=== PATIENT | male | born 1965 | race Caucasian/White ===

== ENCOUNTER 2017-11-27 10:17 | Observation (INO) | payer BC, OTHER ==
[~2017-11-27] VITALS: Ht 190.5 cm; Wt 112.0 kg
[~2017-11-27 10:17] MED LIST: ALPR.25 PO; LEVO50IN PO; LISI-360 PO; NEXI40CA PO; PRED10PA PO; WALKER ROLLING
[2017-11-27 10:21] VITALS: BP 155/87; PULSE 78; RESP 17; TEMP 98.5; O2SAT 98
[2017-11-27] MEDS ORDERED: SODIUM CHLOR 0.9% 1000 ML INJ 1,000 ML IV SCH (10:33)
[2017-11-27] MEDS ORDERED: LEVO200T4 PO (10:44)
[2017-11-27] MEDS ORDERED: NEXI40CA PO (10:44)
[2017-11-27] MEDS ORDERED: ALPR1TAB3 PO (10:44)
[2017-11-27] MEDS ORDERED: LISI10TA3 PO (10:44)
[2017-11-27] MEDS ORDERED: MORPHINE SULFATE 4 MG/ML INJ IV PUSH ONE (10:45)
[2017-11-27] MEDS ORDERED: ONDANSETRON HCL 4 MG/2 ML VIAL IVP ONE (10:45)
[2017-11-27] MEDS ORDERED: SODIUM CHLORIDE 0.9% FLUSH 10 ML FLUSH IV FLUSH PRN ×2 (10:45→13:15)
[2017-11-27 11:15] LABS: AUTOMATED NEUTROPHIL # 14.7 TH/MM3 (1.8-7.7); BASOPHIL # 0.1 TH/MM3 (0-0.2); BASOPHIL % 0.6 % (0.0-2.0); EOSINOPHIL # 0.3 TH/MM3 (0-0.4); EOSINOPHIL % 1.5 % (0.0-4.0); HEMATOCRIT 47.1 % (39.0-51.0); HEMOGLOBIN 16.3 GM/DL (13.0-17.0); LYMPH % 9.9 % (9.0-44.0); LYMPHOCYTE # 1.8 TH/MM3 (1.0-4.8); MEAN CORPUSCULAR HEMOGLOBIN 30.7 PG (27.0-34.0); MEAN CORPUSCULAR HGB CONC 34.5 % (32.0-36.0); MEAN PLATELET VOLUME 7.6 FL (7.0-11.0); MONOCYTE # 1.1 TH/MM3 (0-0.9); PLATELET COUNT 323 TH/MM3 (150-450); RED CELL DISTRIBUTION WIDTH 13.6 % (11.6-17.2); WHITE BLOOD COUNT 17.9 TH/MM3 (4.0-11.0)
[2017-11-27 11:31] LABS: ALBUMIN 3.9 GM/DL (3.4-5.0); ALT (GPT) 45 U/L (12-78); AST (GOT) 20 U/L (15-37); BICARBONATE 25.6 MEQ/L (21.0-32.0); BLOOD UREA NITROGEN 10 MG/DL (7-18); CHLORIDE 110 MEQ/L (98-107); CREATININE 0.89 MG/DL (0.60-1.30); GLOMERULAR FILTRATION RATE 90 ML/MIN (>89); GLUCOSE,RANDOM 106 MG/DL (74-106); SODIUM (NA) 143 MEQ/L (136-145)
[2017-11-27 11:34] LABS: ALKALINE PHOSPHATASE 76 U/L (45-117); TOTAL BILIRUBIN ADULT 0.5 MG/DL (0.2-1.0); TOTAL PROTEIN 7.8 GM/DL (6.4-8.2)
--- NOTE | 2017-11-27 12:12 | PD ---
HPI . Abdominal pain Chief Complaint: Abdominal Pain Time Seen by Provider: 10:24 Travel History International Travel<30 days: No Contact w/Intl Traveler<30days: No Traveled to known affect area: No History of Present Illness HPI This patient presents with a 2 day history of abdominal pain. The pain is described as crampy and is rated at 8/10. The pain has waxed and waned and is getting progressively worse. He does not have any associated symptoms such as GI upset, fever or urinary tract symptoms. He reports a bowel movement yesterday. He denies any flank pain. This patient has a history of previous diverticulitis treated with partial colectomy. He states that his current abdominal pain does not feel like previous diverticulitis. PFSH Past Medical History Hx Anticoagulant Therapy: Yes (asa) Autoimmune Disease: No Cancer: No Cardiovascular Problems: Yes High Cholesterol: Yes Chemotherapy: No Diabetes: No Diminished Hearing: No Diverticulitis: Yes Endocrine: No Gastrointestinal Disorders: Yes (BOWEL PERFORATION) GERD: Yes Hepatitis: No Hiatal Hernia: No Hypertension: Yes Immune Disorder: No Medical other: Yes (TRANSVERSE MYLITIS) Neurologic: Yes (MULTIPLE SCLEROSIS) Psychiatric: No Migraines: Yes Radiation Therapy: No Thyroid Disease: Yes Tetanus Vaccination: Unknown Influenza Vaccination: No Past Surgical History Abdominal Surgery: Yes (COLON RESECTION FOR DIVERTICULITIS,HERNIA WITH MESH) AICD: No Eye Surgery: Yes (STYE OD REMOVED) Insulin Pump: No Joint Replacement: No Pacemaker: No Other Surgery: Yes (partial thyroidectomy) Social History Alcohol Use: Yes (on occasion) Tobacco Use: No Substance Use: No Allergies-Medications (Allergen,Severity, Reaction): Coded Allergies: codeine (Unverified Allergy, Severe, Nausea/Vomiting, 11/27/17) PER PATIENT penicillin G (Unverified Allergy, Severe, CHILD, 11/27/17) Reported Meds & Prescriptions Reported Meds & Active Scripts Active Reported Alprazolam 1 Mg Tab 1 Mg PO Q6H PRN Levothyroxine (Levothyroxine Sodium) 200 Mcg Tab 200 Mcg PO DAILY Lisinopril 10 Mg Tab 10 Mg PO DAILY Nexium (Esomeprazole DR) 40 Mg Capdr 40 Mg PO DAILY Review of Systems Except as stated in HPI: all other systems reviewed are Neg General / Constitutional: No: Fever, Chills Gastrointestinal: Positive: Abdominal Pain, No: Nausea, Vomiting, Diarrhea, Constipation Genitourinary: No: Urgency, Frequency, Dysuria, Hematuria, Flank Pain Physical Exam Narrative GENERAL: This patient looks very uncomfortable. He had to stand up in order to get comfortable. He is very restless. SKIN: warm. Clammy. HEAD: Normocephalic. Atraumatic. EYES: Pupils equal and round. No scleral icterus. No injection or drainage. ENT: No nasal bleeding or discharge. Mucous membranes pink and moist. NECK: Trachea midline. Full range of motion without pain.. CARDIOVASCULAR: Regular rate and rhythm. RESPIRATORY: No accessory muscle use. Clear to auscultation. Breath sounds equal bilaterally. GASTROINTESTINAL: Abdomen soft. Periumbilical tenderness. Bowel sounds present. Nondistended. : No CVA tenderness. MUSCULOSKELETAL: No obvious deformities. NEUROLOGICAL: Awake and alert. No obvious cranial nerve deficits. Motor grossly within normal limits. Normal speech. PSYCHIATRIC: Appropriate mood and affect; insight and judgment normal. Data Data Last Documented VS Vital Signs Date Time Temp Pulse Resp B/P (MAP) Pulse Ox O2 Delivery O2 Flow Rate FiO2 11/27/17 10:21 98.5 78 17 155/87 (109) 98 Orders Orders Complete Blood Count With Diff (11/27/17 10:33) Comprehensive Metabolic Panel (11/27/17 10:33) Lipase (11/27/17 10:33) Lactic Acid (11/27/17 10:33) Urinalysis - C+S If Indicated (11/27/17 10:33) Ct Abd/Pel W Iv Contrast(Rout) (11/27/17 10:33) Iv Access Insert/Monitor (11/27/17 10:33) NPO (11/27/17 10:33) Morphine Inj (Morphine Inj) (11/27/17 10:45) Ondansetron Inj (Zofran Inj) (11/27/17 10:45) Sodium Chlor 0.9% 1000 Ml Inj (Ns 1000 M (11/27/17 10:33) Sodium Chloride 0.9% Flush (Ns Flush) (11/27/17 10:45) Iohexol 350 Inj (Omnipaque 350 Inj) (11/27/17 12:26) Admit Order (Ed Use Only) (4/1/18 13:17) Labs Laboratory Tests Test 11/27/17 10:55 11/27/17 12:40 White Blood Count 17.9 TH/MM3 Red Blood Count 5.30 MIL/MM3 Hemoglobin 16.3 GM/DL Hematocrit 47.1 % Mean Corpuscular Volume 89.0 FL Mean Corpuscular Hemoglobin 30.7 PG Mean Corpuscular Hemoglobin Concent 34.5 % Red Cell Distribution Width 13.6 % Platelet Count 323 TH/MM3 Mean Platelet Volume 7.6 FL Neutrophils (%) (Auto) 82.0 % Lymphocytes (%) (Auto) 9.9 % Monocytes (%) (Auto) 6.0 % Eosinophils (%) (Auto) 1.5 % Basophils (%) (Auto) 0.6 % Neutrophils # (Auto) 14.7 TH/MM3 Lymphocytes # (Auto) 1.8 TH/MM3 Monocytes # (Auto) 1.1 TH/MM3 Eosinophils # (Auto) 0.3 TH/MM3 Basophils # (Auto) 0.1 TH/MM3 CBC Comment DIFF FINAL Differential Comment Blood Urea Nitrogen 10 MG/DL Creatinine 0.89 MG/DL Random Glucose 106 MG/DL Total Protein 7.8 GM/DL Albumin 3.9 GM/DL Calcium Level 9.0 MG/DL Alkaline Phosphatase 76 U/L Aspartate Amino Transf (AST/SGOT) 20 U/L Alanine Aminotransferase (ALT/SGPT) 45 U/L Total Bilirubin 0.5 MG/DL Sodium Level 143 MEQ/L Potassium Level 4.3 MEQ/L Chloride Level 110 MEQ/L Carbon Dioxide Level 25.6 MEQ/L Anion Gap 7 MEQ/L Estimat Glomerular Filtration Rate 90 ML/MIN Lactic Acid Level 1.2 mmol/L Lipase 93 U/L [facility] Medical Decision Making Medical Screen Exam Complete: Yes Emergency Medical Condition: Yes Medical Record Reviewed: Yes (Medical history includes hypertension, multiple sclerosis and hypothyroidism.) Differential Diagnosis Differential diagnosis of abdominal pain includes but is not limited to gastritis, pancreatitis, hepatitis, gastroenteritis, constipation, urinary retention, peptic ulcer disease, diverticulitis or appendicitis Narrative Course This patient presents with crampy abdominal pain which waxes and wanes and which is getting progressively worse over the course of the last 2 days. He looks very uncomfortable. I have ordered IV fluids and IV pain medication. Routine abdominal pain workup is in process including a CT of the abdomen to look for diverticulitis, bowel obstruction, perforation, kidney stone, AAA. CBC & BMP Diagram 11/27/17 10:55 Total Protein 7.8, Albumin 3.9, Calcium Level 9.0, Alkaline Phosphatase 76, Aspartate Amino Transf (AST/SGOT) 20, Alanine Aminotransferase (ALT/SGPT) 45, Total Bilirubin 0.5 Lipase 93, lactic acid 1.2 He does not meet SIRS criteria but does have leukocytosis. Diagnosis Primary Impression: Abdominal pain Qualified Codes: R10.33 - Periumbilical pain Additional Impressions: Leukocytosis Qualified Codes: D72.829 - Elevated white blood cell count, unspecified ileius vs. early SBO Admitting Information Admitting Physician Requests: Admit Patient Instructions: Narcotic given in the ED Condition: Stable Jayne Sarah MD Nov 27, 2017 12:12
[2017-11-27] MEDS ORDERED: IOHEXOL 350 MG/ML 10 ML VIAL (for RAD DIAG) IVCONTRAST ONE (12:26)
--- NOTE | 2017-11-27 12:31 | RADRPT ---
EXAM DATE/TIME: 11/27/2017 12:16 [place] COMPARISON: No previous studies available for comparison. INDICATIONS : Mid abdominal pain for 2 days. IV CONTRAST: 100 cc Omnipaque 350 (iohexol) IV ORAL CONTRAST: No oral contrast ingested. RADIATION DOSE: 16.20 CTDIvol (mGy) MEDICAL HISTORY : Hypertension. Diverticulitis. SURGICAL HISTORY : Colon resection. Hernia mesh. ENCOUNTER: Initial ACUITY: 2 days PAIN SCALE: 8/10 LOCATION: Bilateral middle abdomen TECHNIQUE: Volumetric scanning of the abdomen and pelvis was performed. Using automated exposure control and ad justment of the mA and/or kV according to patient size, radiation dose was kept as low as reasonably achievable to obtain optimal diagnostic quality images. DICOM format image data is available electro nically for review and comparison. FINDINGS: LOWER LUNGS: The visualized lower lungs are clear. LIVER: Homogeneous density without lesion. There is no dilation of the biliary tree. There is moderate hep atic steatosis. There are multiple small calcified gallstones layering dependently in the gallbladder . There is no wall thickening or inflammatory change. SPLEEN: Normal size without lesion. PANCREAS: Within normal limits. KIDNEYS: Normal in size and shape. There is no mass, stone or hydronephrosis. ADRENAL GLANDS: Within normal limits. VASCULAR: There is no aortic aneurysm. BOWEL/MESENTERY: Postsurgical changes are present status post partial colectomy with anastomotic mateusz in the pelvis . There are scattered diverticuli with no inflammatory change. There is a normal appendix. There are multiple loops of nondilated air-containing small bowel with several small air-fluid levels. There is no free air or fluid. ABDOMINAL WALL: Within normal limits. RETROPERITONEUM: There is no lymphadenopathy. BLADDER: No wall thickening or mass. REPRODUCTIVE: Within normal limits. INGUINAL: There is no lymphadenopathy or hernia. MUSCULOSKELETAL: Within normal limits for patient age. CONCLUSION: 1. Mildly nonspecific, nonobstructive bowel gas pattern which may represent a mild ileus and/or gastr oenteritis. There are postsurgical changes status post partial colectomy. 2. Cholelithiasis with multiple small calcified gallstones layering dependently. There is no wall thi ckening or inflammatory change 3. Moderate hepatic steatosis. Shashank Richards MD on November 27, 2017 at 12:25 Board Certified Radiologist. This report was verified electronically.
[2017-11-27 13:09] LABS: BILIRUBIN, URINE NEG (NEG); BLOOD, URINE NEG (NEG); GLUCOSE,URINE NEG (NEG); KETONE, URINE NEG (NEG); NITRITE,URINE NEG (NEG); URINE COLOR YELLOW (YELLW/STRAW); URINE LEUKOCYTE ESTERASE NEG (NEG)
[2017-11-27] MEDS ORDERED: ACETAMINOPHEN 325 MG TAB PO PRN (13:15)
[2017-11-27] MEDS: 1/2 NS + KCL 20 MEQ INJ 1,000 ML IV SCH (13:15)
[2017-11-27] MEDS ORDERED: ACETAMINOPHEN/HYDROcodone 325 MG/5 MG TAB PO PRN (13:15)
[2017-11-27] MEDS ORDERED: LACTULOSE SYRUP 20 GM/30 ML CUP PO PRN (13:15)
--- NOTE | 2017-11-27 13:29 | HHI.HP ---
HPI Service [facility] Hospitalists Primary Care Physician Arcenio Szymanski MD Admission Diagnosis ileus vs partial SBO Chief Complaint: abd pain Travel History International Travel<30 Days: No Contact w/Intl Traveler <30 Da: No Traveled to Known Affected Are: No History of Present Illness This is a 52 year old male patient with a past medical history which includes Diverticulitis s/p partial colectomy, thyroidectomy, MS dx [address] Gallagher, Migraine headache takes Goody's powder about twice a month. Patient presents to the ER due to crampy/aching type abd pain. Patient reports two nights ago he had abd pain located in the midepigastric area which woke him from sleep. Yesterday the abd pain seemed to resolve then came back again last night. Last night the abd pain was worse and awoke him more often therefor he proceeded to the ER. Patient denies associated N/V/D/C or blood in stool. Last BM yesterday. Patient also denies fevers, chills, chest pain, shortness of breath or flank pain. Last colonoscopy was done with Dr. North about one year ago, partial colectomy by Dr. Johns CT abd/pelvis reveals: Mildly nonspecific, nonobstructive bowel gas pattern which may represent a mild ileus and/or gastroenteritis. There are postsurgical changes status post partial colectomy. Cholelithiasis with multiple small calcified gallstones layering dependently. There is no wall thickening or inflammatory change. Moderate hepatic steatosis. WBC 17.9 Review of Systems Constitutional: DENIES: Fatigue, Fever, Chills Eyes: DENIES: Blurred vision, Diplopia, Photosensitivity Respiratory: DENIES: Cough, Sputum production, Shortness of breath Cardiovascular: DENIES: Chest pain, Dyspnea on Exertion, Lower Extremity Edema Gastrointestinal: COMPLAINS OF: Abdominal pain, DENIES: Black stools, Bloody stools, BRB per rectum, Constipation, Diarrhea, Nausea, Vomiting Neurologic: DENIES: Abnormal gait, Headache, Localized weakness, Seizures Psychiatric: DENIES: Anxiety, Confusion, Depression Past Family Social History Past Medical History Diverticulitis, post colectomy. History of transverse myelitis in the past. Past Surgical History Previous back surgeries Thyroidectomy Partial collectomy secondary to diverticulitis Reported Medications Alprazolam 1 Mg Tab 1 Mg PO Q6H PRN Levothyroxine (Levothyroxine Sodium) 200 Mcg Tab 200 Mcg PO DAILY Lisinopril 10 Mg Tab 10 Mg PO DAILY Nexium (Esomeprazole DR) 40 Mg Capdr 40 Mg PO DAILY Allergies: Coded Allergies: codeine (Unverified Allergy, Severe, Nausea/Vomiting, 11/27/17) PER PATIENT penicillin G (Unverified Allergy, Severe, CHILD, 11/27/17) Family History Cousin has MS Father of colon Ca at 62 years old Social History He is . 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 Denies ETOH use, tobacco use or illicit drug use Physical Exam Vital Signs Vital Signs Date Time Temp Pulse Resp B/P (MAP) Pulse Ox O2 Delivery O2 Flow Rate FiO2 11/27/17 10:21 98.5 78 17 155/87 (109) 98 Physical Exam GENERAL: This is a well-nourished, well-developed patient, in no apparent distress. SKIN: No rashes, ecchymoses or lesions. Cool and dry. HEAD: Atraumatic. Normocephalic. No temporal or scalp tenderness. EYES: Extraocular motions intact. No scleral icterus. No injection or drainage. CARDIOVASCULAR: Regular rate and rhythm RESPIRATORY: Clear to auscultation. Breath sounds equal bilaterally. GASTROINTESTINAL: Abdomen soft, non-tender, nondistended. positive normoactive bowel sounds x 4 quadrants MUSCULOSKELETAL: Extremities without clubbing, cyanosis, or edema. No joint tenderness, effusion, or edema noted. No calf tenderness. Negative Homans sign bilaterally. NEUROLOGICAL: Awake and alert. No focal deficits. Motor and sensory grossly within normal limits. Five out of 5 muscle strength in all muscle groups. Normal speech. Laboratory Laboratory Tests Test 11/27/17 10:55 11/27/17 12:40 White Blood Count 17.9 Red Blood Count 5.30 Hemoglobin 16.3 Hematocrit 47.1 Mean Corpuscular Volume 89.0 Mean Corpuscular Hemoglobin 30.7 Mean Corpuscular Hemoglobin Concent 34.5 Red Cell Distribution Width 13.6 Platelet Count 323 Mean Platelet Volume 7.6 Neutrophils (%) (Auto) 82.0 Lymphocytes (%) (Auto) 9.9 Monocytes (%) (Auto) 6.0 Eosinophils (%) (Auto) 1.5 Basophils (%) (Auto) 0.6 Neutrophils # (Auto) 14.7 Lymphocytes # (Auto) 1.8 Monocytes # (Auto) 1.1 Eosinophils # (Auto) 0.3 Basophils # (Auto) 0.1 CBC Comment DIFF FINAL Differential Comment Blood Urea Nitrogen 10 Creatinine 0.89 Random Glucose 106 Total Protein 7.8 Albumin 3.9 Calcium Level 9.0 Alkaline Phosphatase 76 Aspartate Amino Transf (AST/SGOT) 20 Alanine Aminotransferase (ALT/SGPT) 45 Total Bilirubin 0.5 Sodium Level 143 Potassium Level 4.3 Chloride Level 110 Carbon Dioxide Level 25.6 Anion Gap 7 Estimat Glomerular Filtration Rate 90 Lactic Acid Level 1.2 Lipase 93 Result Diagram: 11/27/17 1055 11/27/17 1055 Imaging Last Impressions Abdomen/Pelvis CT 11/27/17 1033 Signed Impressions: Service Date/Time: Monday, November 27, 2017 12:16 - CONCLUSION: 1. Mildly nonspecific, nonobstructive bowel gas pattern which may represent a mild ileus and/or gastroenteritis. There are postsurgical changes status post partial colectomy. 2. Cholelithiasis with multiple small calcified gallstones layering dependently. There is no wall thickening or inflammatory change 3. Moderate hepatic steatosis. Shashank Richards MD Caprini VTE Risk Assessment Caprini VTE Risk Assessment: No/Low Risk (score <= 1) Caprini Risk Assessment Model Point Value = 1 Point Value = 2 Point Value = 3 Point Value = 5 Age 41-60 Minor surgery BMI > 25 kg/m2 Swollen legs Varicose veins or History of unexplained or recurrent spontaneous Oral contraceptives or hormone replacement Sepsis (< 1 month) Serious lung disease, including pneumonia (< 1 month) Abnormal pulmonary function Acute myocardial infarction Congestive heart failure (< 1 month) History of inflammatory bowel disease Medical patient at bed rest Age 61-74 Arthroscopic surgery Major open surgery (> 45 min) Laparoscopic surgery (> 45 min) Malignancy Confined to bed (> 72 hours) Immobilizing plaster cast Central venous access Age >= 75 History of VTE Family history of VTE Factor V Leiden Prothrombin [id number] Lupus anticoagulant Anticardiolipin antibodies Elevated serum homocysteine Heparin-induced thrombocytopenia Other congenital or acquired thrombophilia Stroke (< 1 month) Elective arthroplasty Hip, pelvis, or leg fracture Acute spinal cord injury (< 1 month) Prophylaxis Regimen Total Risk Factor Score Risk Level Prophylaxis Regimen 0-1 Low Early ambulation 2 Moderate Order ONE of the following: *Sequential Compression Device (SCD) *Heparin 5000 units SQ BID 3-4 Higher Order ONE of the following medications: *Heparin 5000 units SQ TID *Enoxaparin/Lovenox 40 mg SQ daily (WT < 150 kg, CrCl > 30 mL/min) *Enoxaparin/Lovenox 30 mg SQ daily (WT < 150 kg, CrCl > 10-29 mL/min) *Enoxaparin/Lovenox 30 mg SQ BID (WT < 150 kg, CrCl > 30 mL/min) AND/OR *Sequential Compression Device (SCD) 5 or more Highest Order ONE of the following medications: *Heparin 5000 units SQ TID (Preferred with Epidurals) *Enoxaparin/Lovenox 40 mg SQ daily (WT < 150 kg, CrCl > 30 mL/min) *Enoxaparin/Lovenox 30 mg SQ daily (WT < 150 kg, CrCl > 10-29 mL/min) *Enoxaparin/Lovenox 30 mg SQ BID (WT < 150 kg, CrCl > 30 mL/min) AND *Sequential Compression Device (SCD) Assessment and Plan Problem List: (1) Ileus ICD Codes: K56.7 - Ileus, unspecified Plan: CT abd/pelvis reveals: Mildly nonspecific, nonobstructive bowel gas pattern which may represent a mild ileus and/or gastroenteritis. There are postsurgical changes status post partial colectomy. Cholelithiasis with multiple small calcified gallstones layering dependently. There is no wall thickening or inflammatory change. Moderate hepatic steatosis. WBC 17.9 ER started Cipro and Flagyl IV will continue NPO, Bowel rest plan to place NGT if patient starts vomiting IVFs for hydration [place] and Dilaudid as needed for pain KUB in AM (2) Hypothyroidism ICD Codes: E03.9 - Hypothyroidism, unspecified Plan: Patient unsure of Synthroid 3 TSH and free T4 (3) Multiple sclerosis ICD Codes: G35 - Multiple sclerosis Plan: Continue patient's home Tecfidera 240 mg PO BID Assessment and Plan Patient examined. Assessment and plan formulated with Mary MURILLO I agree with the above. Physician Certification 2 Midnight Certification Type: Admission for Inpatient Services Order for Inpatient Services The services are ordered in accordance with Medicare regulations or non- Medicare payer requirements, as applicable. In the case of services not specified as inpatient-only, they are appropriately provided as inpatient services in accordance with the 2-midnight benchmark. Estimated LOS (days): 2 days is the estimated time the patient will need to remain in the hospital, assuming treatment plan goals are met and no additional complications. Post-Hospital Plan: Home Mary Addison Nov 27, 2017 13:29 Jose Delvalle DO Dec 01, 2017 11:36
[2017-11-27] MEDS ORDERED: metroNIDAZOLE 500 MG INJ 100 ML IV ONE (13:30)
[2017-11-27] MEDS ORDERED: PANTOPRAZOLE SODIUM 40 MG VIAL IV PUSH ONE (13:30)
[2017-11-27] MEDS ORDERED: ALPRAZolam 1 MG TAB PO PRN (13:30)
[2017-11-27] MEDS ORDERED: CIPROFLOXACIN 400 MG PREMIX 200 ML IV ONE (13:30)
[2017-11-27 13:45] VITALS: BP 134/66; PULSE 78; RESP 17; O2SAT 97
[2017-11-27] MEDS: HYDROmorphone HCL PF 2 MG/ML VIAL IV PUSH PRN ×2 (15:24→20:23)
[2017-11-27 15:36] LABS: FREE T4 1.65 NG/DL (0.76-1.46)
[2017-11-27 16:00] VITALS: BP 148/94; PULSE 68; RESP 16; TEMP 98.4; O2SAT 99
[2017-11-27] MEDS: CIPROFLOXACIN 400 MG PREMIX 200 ML IV SCH (16:00)
[2017-11-27] MEDS ORDERED: DIME240C PO (16:16)
[2017-11-27] MEDS: ONDANSETRON HCL 4 MG/2 ML VIAL IV PUSH PRN ×2 (16:26→23:41)
[2017-11-27 20:00] VITALS: BP 120/65; PULSE 61; RESP 16; TEMP 98.1; O2SAT 97
[2017-11-27] MEDS: SODIUM CHLORIDE 0.9% FLUSH 10 ML FLUSH IV FLUSH SCH (20:23)
[2017-11-27] MEDS ORDERED: TECFIDERA 240 MG PO SCH (21:00)
[2017-11-27] MEDS ORDERED: TEMAZEPAM 15 MG CAP PO PRN (21:00)
[2017-11-27] MEDS: metroNIDAZOLE 500 MG INJ 100 ML IV SCH (23:41)
[2017-11-28] VITALS: BP 126/68; PULSE 58; RESP 17; TEMP 97.9; O2SAT 97
[2017-11-28] MEDS: 1/2 NS + KCL 20 MEQ INJ 1,000 ML IV SCH ×2 (01:10→13:05)
[2017-11-28 04:00] VITALS: BP 121/59; PULSE 55; RESP 16; TEMP 98.2; O2SAT 96
[2017-11-28] MEDS: HYDROmorphone HCL PF 2 MG/ML VIAL IV PUSH PRN (04:00)
[2017-11-28] MEDS: CIPROFLOXACIN 400 MG PREMIX 200 ML IV SCH (04:00)
[2017-11-28] MEDS ORDERED: LEVOTHYROXINE SODIUM 200 MCG TAB PO SCH (06:00)
[2017-11-28] MEDS: ONDANSETRON HCL 4 MG/2 ML VIAL IV PUSH PRN (06:01)
[2017-11-28] MEDS: LEVOTHYROXINE SODIUM 150 MCG TAB PO SCH (07:30)
[2017-11-28 08:00] VITALS: BP 125/61; PULSE 60; RESP 18; TEMP 97.8; O2SAT 96
[2017-11-28 08:01] LABS: AUTOMATED NEUTROPHIL # 9.8 TH/MM3 (1.8-7.7); BASOPHIL % 0.3 % (0.0-2.0); EOSINOPHIL % 0.1 % (0.0-4.0); HEMATOCRIT 42.8 % (39.0-51.0); HEMOGLOBIN 14.6 GM/DL (13.0-17.0); LYMPH % 8.9 % (9.0-44.0); MEAN CELL VOLUME 89.8 FL (80.0-100.0); MEAN CORPUSCULAR HEMOGLOBIN 30.7 PG (27.0-34.0); MEAN CORPUSCULAR HGB CONC 34.2 % (32.0-36.0); MEAN PLATELET VOLUME 8.3 FL (7.0-11.0); MONO % 3.9 % (0.0-8.0); MONOCYTE # 0.4 TH/MM3 (0-0.9); NEUT % 86.8 % (16.0-70.0); PLATELET COUNT 273 TH/MM3 (150-450); RED BLOOD COUNT 4.76 MIL/MM3 (4.50-5.90); RED CELL DISTRIBUTION WIDTH 13.3 % (11.6-17.2); WHITE BLOOD COUNT 11.3 TH/MM3 (4.0-11.0)
[2017-11-28] MEDS ORDERED: MORPHINE SULFATE 4 MG/ML INJ IV PUSH PRN (08:15)
[2017-11-28] MEDS ORDERED: ALPRAZolam 1 MG TAB PO PRN (08:15)
--- NOTE | 2017-11-28 08:18 | HHI.PR ---
Subjective Remarks Patient reports he had a, "bad night," vomited after Dilaudid no longer having abd pain no longer having N/V Objective Vitals Vital Signs Date Time Temp Pulse Resp B/P (MAP) Pulse Ox O2 Delivery O2 Flow Rate FiO2 11/28/17 04:00 98.2 55 16 121/59 (79) 96 11/28/17 00:00 97.9 58 17 126/68 (87) 97 11/27/17 20:00 98.1 61 16 120/65 (83) 97 11/27/17 16:00 98.4 68 16 148/94 (112) 99 11/27/17 14:27 11/27/17 13:45 78 17 134/66 (88) 97 Room Air 11/27/17 10:21 98.5 78 17 155/87 (109) 98 Result Diagram: 11/28/17 0639 11/27/17 1055 Other Results Laboratory Tests Test 11/27/17 10:55 11/27/17 12:40 11/28/17 06:39 White Blood Count 17.9 TH/MM3 11.3 TH/MM3 Red Blood Count 5.30 MIL/MM3 4.76 MIL/MM3 Hemoglobin 16.3 GM/DL 14.6 GM/DL Hematocrit 47.1 % 42.8 % Mean Corpuscular Volume 89.0 FL 89.8 FL Mean Corpuscular Hemoglobin 30.7 PG 30.7 PG Mean Corpuscular Hemoglobin Concent 34.5 % 34.2 % Red Cell Distribution Width 13.6 % 13.3 % Platelet Count 323 TH/MM3 273 TH/MM3 Mean Platelet Volume 7.6 FL 8.3 FL Neutrophils (%) (Auto) 82.0 % 86.8 % Lymphocytes (%) (Auto) 9.9 % 8.9 % Monocytes (%) (Auto) 6.0 % 3.9 % Eosinophils (%) (Auto) 1.5 % 0.1 % Basophils (%) (Auto) 0.6 % 0.3 % Neutrophils # (Auto) 14.7 TH/MM3 9.8 TH/MM3 Lymphocytes # (Auto) 1.8 TH/MM3 1.0 TH/MM3 Monocytes # (Auto) 1.1 TH/MM3 0.4 TH/MM3 Eosinophils # (Auto) 0.3 TH/MM3 0.0 TH/MM3 Basophils # (Auto) 0.1 TH/MM3 0.0 TH/MM3 CBC Comment DIFF FINAL DIFF FINAL Differential Comment Blood Urea Nitrogen 10 MG/DL Creatinine 0.89 MG/DL Random Glucose 106 MG/DL Total Protein 7.8 GM/DL Albumin 3.9 GM/DL Calcium Level 9.0 MG/DL Alkaline Phosphatase 76 U/L Aspartate Amino Transf (AST/SGOT) 20 U/L Alanine Aminotransferase (ALT/SGPT) 45 U/L Total Bilirubin 0.5 MG/DL Sodium Level 143 MEQ/L Potassium Level 4.3 MEQ/L Chloride Level 110 MEQ/L Carbon Dioxide Level 25.6 MEQ/L Anion Gap 7 MEQ/L Estimat Glomerular Filtration Rate 90 ML/MIN Lactic Acid Level 1.2 mmol/L Lipase 93 U/L Free Thyroxine 1.65 NG/DL Thyroid Stimulating Hormone 3rd Gen 0.173 uIU/ML Urine Color YELLOW Urine Turbidity CLEAR Urine pH 5.0 Urine Specific [place] 1.022 Urine Protein NEG mg/dL Urine Glucose (UA) NEG mg/dL Urine Ketones NEG mg/dL Urine Occult Blood NEG Urine Nitrite NEG Urine Bilirubin NEG Urine Urobilinogen LESS THAN 2.0 MG/DL Urine Leukocyte Esterase NEG Urine WBC 1 /hpf Microscopic Urinalysis Comment CULT NOT INDICATED Imaging Last Impressions Abdomen/Pelvis CT 11/27/17 1033 Signed Impressions: Service Date/Time: Monday, November 27, 2017 12:16 - CONCLUSION: 1. Mildly nonspecific, nonobstructive bowel gas pattern which may represent a mild ileus and/or gastroenteritis. There are postsurgical changes status post partial colectomy. 2. Cholelithiasis with multiple small calcified gallstones layering dependently. There is no wall thickening or inflammatory change 3. Moderate hepatic steatosis. Shashank Richards MD Objective Remarks GENERAL: This is a well-nourished, well-developed patient, in no apparent distress. CARDIOVASCULAR: Regular rate and rhythm RESPIRATORY: Clear to auscultation. Breath sounds equal bilaterally. GASTROINTESTINAL: Abdomen soft, non-tender, nondistended. hypoactive bowel sounds MUSCULOSKELETAL: Extremities without clubbing, cyanosis, or edema. NEURO: Alert & Oriented x4 to person, place, time, situation. Moves all ext x4 A/P Problem List: (1) Ileus ICD Codes: K56.7 - Ileus, unspecified Plan: CT abd/pelvis reveals: Mildly nonspecific, nonobstructive bowel gas pattern which may represent a mild ileus and/or gastroenteritis. There are postsurgical changes status post partial colectomy. Cholelithiasis with multiple small calcified gallstones layering dependently. There is no wall thickening or inflammatory change. Moderate hepatic steatosis. WBC 17.9 ER started Cipro and Flagyl IV will continue NPO, Bowel rest Nurse to place NGT if patient has any further vomiting IVFs for hydration [place] as needed for pain, DC Dilaudid secondary to vomiting will add Morphine if needed KUB for this AM pending (2) Hypothyroidism ICD Codes: E03.9 - Hypothyroidism, unspecified Plan: Patient home dose of Levothyroxine is 200 mcg daily TSH 0.173 and free T4 1.65 will decrease Levothyroxine to 150 mcg PO daily- patient will need recheck of TSH and free T4 in 6 weeks as out patient (3) Multiple sclerosis ICD Codes: G35 - Multiple sclerosis Plan: Continue patient's home Tecfidera 240 mg PO BID Assessment and Plan Patient examined. Assessment and plan formulated with Mary Addison PA-C. I agree with the above. abdomen pain with apparent small bowel mild ileus. could be due to viral enteritis. pt was placed on abx from the ED. doing better. no apparent obstruction. passing flatus. start liquids and advance as tolerated. Mary Addison Nov 28, 2017 08:18 Blayne Santiago MD Nov 28, 2017 14:18
[2017-11-28 08:22] LABS: BICARBONATE 24.9 MEQ/L (21.0-32.0); CALCIUM 8.4 MG/DL (8.5-10.1); CREATININE 0.76 MG/DL (0.60-1.30)
[2017-11-28] MEDS: metroNIDAZOLE 500 MG INJ 100 ML IV SCH (08:50)
[2017-11-28] MEDS: PANTOPRAZOLE SOD 40 MG DELAYED RELEASE TAB PO SCH (08:50)
[2017-11-28] MEDS: LISINOPRIL 10 MG TAB PO SCH (08:51)
[2017-11-28] MEDS: SODIUM CHLORIDE 0.9% FLUSH 10 ML FLUSH IV FLUSH SCH ×2 (08:51→21:00)
--- NOTE | 2017-11-28 08:56 | EKG ---
Date Performed: 11/27/2017 Time Performed: 17:50:51 PTAGE: 52 years EKG: SINUS BRADYCARDIA BORDERLINE ECG PREVIOUS TRACING : 01/19/2016 09.18 Since the previous tracing, no significant change noted DOCTOR: Yadira Schaefer Interpretating Date/Time 11/28/2017 08:55:51
--- NOTE | 2017-11-28 09:43 | RADRPT ---
EXAM DATE/TIME: 11/28/2017 08:36 [place] COMPARISON: No previous studies available for comparison. INDICATIONS : Abdominal discomfort, evaluate for ileus MEDICAL HISTORY : Diverticulitis. Hypertension SURGICAL HISTORY : Colon resection. ENCOUNTER: Subsequent ACUITY: 2 days PAIN SCORE: 2/10 LOCATION: Bilateral middle abdomen FINDINGS: Supine view of the abdomen was performed. The abdominal bowel gas pattern is normal. No abnormal ma sses, calcifications, or organomegaly is seen. The visualized lower lungs are clear. The osseous st ructures are unremarkable. CONCLUSION: Benign abdomen. Viet Mendoza MD on November 28, 2017 at 9:41 Board Certified Radiologist. This report was verified electronically.
[2017-11-28 12:00] VITALS: BP 138/71; PULSE 61; RESP 18; TEMP 98.2; O2SAT 96
[2017-11-28] MEDS ORDERED: BISACODYL EC 5 MG TABEC PO ONE (14:00)
[2017-11-28] MEDS: metroNIDAZOLE 500 MG TAB PO SCH ×2 (15:14→21:56)
[2017-11-28 16:00] VITALS: BP 125/74; PULSE 66; RESP 18; TEMP 98.3; O2SAT 96
[2017-11-28 20:00] VITALS: BP 150/84; PULSE 71; RESP 18; TEMP 97.7; O2SAT 96
[2017-11-29] VITALS: BP 148/79; PULSE 74; RESP 18; TEMP 97.5; O2SAT 96
[2017-11-29 04:00] VITALS: BP 148/79; PULSE 74; RESP 18; TEMP 97.5; O2SAT 96
[2017-11-29] MEDS: LEVOTHYROXINE SODIUM 150 MCG TAB PO SCH (06:31)
[2017-11-29] MEDS: metroNIDAZOLE 500 MG TAB PO SCH ×2 (06:31→12:13)
[2017-11-29 08:00] VITALS: BP 139/80; PULSE 74; RESP 18; TEMP 97.9; O2SAT 96
[2017-11-29] MEDS ORDERED: METR-1 PO (08:19)
[2017-11-29] MEDS ORDERED: LEVO175T2 PO (08:19)
[2017-11-29] MEDS ORDERED: LEVA500T33 PO (08:19)
[2017-11-29] MEDS: PANTOPRAZOLE SOD 40 MG DELAYED RELEASE TAB PO SCH (08:30)
[2017-11-29] MEDS: SODIUM CHLORIDE 0.9% FLUSH 10 ML FLUSH IV FLUSH SCH (08:30)
[2017-11-29] MEDS: LISINOPRIL 10 MG TAB PO SCH (08:30)
--- NOTE | 2017-11-29 08:48 | HHI.DCPOC ---
Discharge Care Plan Diagnosis: (1) Ileus (2) Multiple sclerosis (3) Hypothyroidism Goals to Promote Your Health * To prevent worsening of your condition and complications * To maintain your health at the optimal level Directions to Meet Your Goals Take your medications as prescribed Follow your dietary instruction Follow activity as directed Keep your appointments as scheduled Take your immunizations and boosters as scheduled If your symptoms worsen call your PCP, if no PCP go to Urgent Care Center or Emergency Room Smoking is Dangerous to Your Health. Avoid second hand smoke Call the 24-hour hour crisis hotline for domestic abuse at [facility] Nov 29, 2017 08:48
--- NOTE | 2017-11-29 08:48 | HHI.DS ---
Discharge Summary Admission Date Nov 27, 2017 at 13:19 Discharge Date: Nov 29, 2017 Admitting Diagnosis ileus (1) Ileus ICD Codes: K56.7 - Ileus, unspecified (2) Hypothyroidism ICD Codes: E03.9 - Hypothyroidism, unspecified (3) Multiple sclerosis ICD Codes: G35 - Multiple sclerosis Consultants None Procedures None Brief History This is a 52 year old male patient with a past medical history which includes Diverticulitis s/p partial colectomy, thyroidectomy, MS dx [address] Gallagher, Migraine headache takes Goody's powder about twice a month. Patient presents to the ER due to crampy/aching type abd pain. Patient reports two nights ago he had abd pain located in the midepigastric area which woke him from sleep. Yesterday the abd pain seemed to resolve then came back again last night. Last night the abd pain was worse and awoke him more often therefor he proceeded to the ER. Patient denies associated N/V/D/C or blood in stool. Last BM yesterday. Patient also denies fevers, chills, chest pain, shortness of breath or flank pain. Last colonoscopy was done with Dr. North about one year ago, partial colectomy by Dr. Johns CT abd/pelvis reveals: Mildly nonspecific, nonobstructive bowel gas pattern which may represent a mild ileus and/or gastroenteritis. There are postsurgical changes status post partial colectomy. Cholelithiasis with multiple small calcified gallstones layering dependently. There is no wall thickening or inflammatory change. Moderate hepatic steatosis. WBC 17.9 CBC/BMP: 11/28/17 0639 11/28/17 0639 Significant Findings Laboratory Tests Test 11/27/17 10:55 11/27/17 12:40 11/28/17 06:39 White Blood Count 17.9 TH/MM3 (4.0-11.0) 11.3 TH/MM3 (4.0-11.0) Neutrophils (%) (Auto) 82.0 % (16.0-70.0) 86.8 % (16.0-70.0) Neutrophils # (Auto) 14.7 TH/MM3 (1.8-7.7) 9.8 TH/MM3 (1.8-7.7) Monocytes # (Auto) 1.1 TH/MM3 (0-0.9) Chloride Level 110 MEQ/L (98-107) 108 MEQ/L (98-107) Free Thyroxine 1.65 NG/DL (0.76-1.46) Thyroid Stimulating Hormone 3rd Gen 0.173 uIU/ML (0.358-3.740) Lymphocytes (%) (Auto) 8.9 % (9.0-44.0) Random Glucose 133 MG/DL (74-106) Calcium Level 8.4 MG/DL (8.5-10.1) Imaging Last Impressions Abdomen X-Ray 11/28/17 0000 Signed Impressions: Service Date/Time: Tuesday, November 28, 2017 08:36 - CONCLUSION: Benign abdomen. Viet Mendoza MD Abdomen/Pelvis CT 11/27/17 1033 Signed Impressions: Service Date/Time: Monday, November 27, 2017 12:16 - CONCLUSION: 1. Mildly nonspecific, nonobstructive bowel gas pattern which may represent a mild ileus and/or gastroenteritis. There are postsurgical changes status post partial colectomy. 2. Cholelithiasis with multiple small calcified gallstones layering dependently. There is no wall thickening or inflammatory change 3. Moderate hepatic steatosis. Shashank Richards MD PE at Discharge GENERAL: This is a well-nourished, well-developed patient, in no apparent distress. CARDIOVASCULAR: Regular rate and rhythm RESPIRATORY: Clear to auscultation. Breath sounds equal bilaterally. GASTROINTESTINAL: Abdomen soft, non-tender, nondistended. hypoactive bowel sounds MUSCULOSKELETAL: Extremities without clubbing, cyanosis, or edema. NEURO: Alert & Oriented x4 to person, place, time, situation. Moves all ext x4 Hospital Course Ileus CT abd/pelvis reveals: Mildly nonspecific, nonobstructive bowel gas pattern which may represent a mild ileus and/or gastroenteritis. There are postsurgical changes status post partial colectomy. Cholelithiasis with multiple small calcified gallstones layering dependently. There is no wall thickening or inflammatory change. Moderate hepatic steatosis. WBC 17.9 -> 11.3 ER started Cipro and Flagyl IV will continue NPO, Bowel rest initially Nurse to place NGT if patient has any further vomiting, patient's symptoms resolved and he did not require NG tube placement IVFs for hydration [place] as needed for pain, DC Dilaudid secondary to vomiting will add Morphine if needed KUB (11/28) revealed a benign abdomen. 11/29 patient's now passing flatus had BM and tolerating PO intake Hypothyroidism Patient home dose of Levothyroxine is 200 mcg daily TSH 0.173 and free T4 1.65 will decrease Levothyroxine to 175 mcg PO daily- patient will need recheck of TSH and free T4 in 6 weeks as out patient Multiple sclerosis Continue patient's home Tecfidera 240 mg PO BID Pt Condition on Discharge: Stable Discharge Disposition: Discharge Home Discharge Instructions DIET: Follow Instructions for: Heart Healthy Diet, Soft Diet Activities you can perform: Regular-No Restrictions Follow up Referrals: Gastroenterology - 2 Weeks with Yessenia aPrdo MD PCP Follow-up - [address] Szymanski New Orders: TSH WITH REFLEX FREE T4 - 6 Weeks New Medications: Levothyroxine (Levothyroxine) 175 Mcg Tab 175 MCG PO DAILY for Thyroid, #30 TAB 0 Refills Levofloxacin (Levaquin) 500 Mg Tablet 500 MG PO DAILY for antibiotics, #6 TAB 0 Refills Metronidazole (Flagyl) 500 Mg Tab 500 MG PO Q8HR for antibiotics for 6 Days, TAB 0 Refills Continued Medications: Alprazolam (Alprazolam) 1 Mg Tab 1 MG PO HS PRN for ANXIETY, TAB 0 Refills Dimethyl Fumarate (Tecfidera) 240 Mg Cap 240 MG PO BID for Multiple sclerosis, #60 CAP [address] (Nexium) 40 Mg Capdr 40 MG PO DAILY, CAP 0 Refills Lisinopril (Lisinopril) 10 Mg Tab 20 MG PO DAILY, #30 TAB 0 Refills Discontinued Medications: Levothyroxine (Levothyroxine) 200 Mcg Tab 200 MCG PO DAILY for Thyroid, #30 TAB 0 Refills [facility] Nov 29, 2017 08:48 Blayne Santiago MD Nov 29, 2017 13:04
[2017-11-29] MEDS ORDERED: LEVOFLOXACIN 500 MG TAB PO SCH (09:00)
[2017-11-29 12:00] VITALS: BP 142/72; PULSE 65; RESP 18; TEMP 98; O2SAT 94
== END 2017-11-29 12:52 | disposition home or self-care (01) ==
LOC: NEPD 10:17 → UNDOADMIN 13:19 → INTOOBSV 13:19 → OBSVTOIN 13:19 → NEDA 13:19 → N06B 14:34 → NEDA 11-28 09:57 → INTOOBSV 11-28 09:57 → N06B 11-28 09:57 → UNDODISIN 11-29 12:52
PROVIDERS: ADMIT Hospitalist; ATTEND Hospitalist
DX: K56.7 Ileus, unspecified (principal); E03.9 Hypothyroidism, unspecified; G35 Multiple sclerosis; D72.829 Elevated white blood cell count, unspecified; K57.92 Diverticulitis of intestine, part unspecified, without perforation or abscess without bleeding; E78.00 Pure hypercholesterolemia, unspecified; K21.9 Gastro-esophageal reflux disease without esophagitis; I10 Essential (primary) hypertension; G43.909 Migraine, unspecified, not intractable, without status migrainosus; Z90.49 Acquired absence of other specified parts of digestive tract; K80.20 Calculus of gallbladder without cholecystitis without obstruction; K76.0 Fatty (change of) liver, not elsewhere classified; Z88.0 Allergy status to penicillin
CPT/HCPCS: 74018; 74177; 80048; 80053; 81001; 83605; 83690; 84439; 84443; 85025; 93005; 96361; 96374; 96375; 99285; C9113; G0378; J0744; J1170; J2270; J2405; J7030; Q9967